=== PATIENT | female | born 1945 | race Caucasian/White ===

== ENCOUNTER 2017-12-14 08:27 | Inpatient (IN) | payer OTHER, BC ==
[~2017-12-14] VITALS: Ht 160 cm; Wt 87.5 kg
[2017-12-14] MEDS ORDERED: METFORMIN HCL1000 MG PO (09:01)
[2017-12-14] MEDS ORDERED: LISINOPRIL-HCT1 EACH PO (09:02)
[2017-12-14] MEDS ORDERED: ROSUVASTATIN CA10 MG PO (09:02)
[2017-12-14] MEDS ORDERED: CYCLOBENZAPRINE10 MG PO (09:03)
[2017-12-14 09:36] LABS: BASOPHIL (%) 0.5 % (0-1); BASOPHIL COUNT 0.1 K/uL (0-0.1); EOSINOPHIL (%) 0.5 % (0-5); EOSINOPHIL COUNT 0.1 K/uL (0-0.3); HEMATOCRIT 39.2 % (36.0-46.0); HEMOGLOBIN 12.9 G/DL (11.9-15.5); IMMATURE GRANULOCYTE (%) 0.6 % (0.0-0.7); LYMPHOCYTE (%) 13.2 % (15-42); LYMPHOCYTE COUNT 2.3 K/uL (1.0-2.8); MCH 30.3 PG (29.0-34.0); MCHC 32.9 G/DL (30.0-36.0); MONOCYTE (%) 6.8 % (3-12); MONOCYTE COUNT 1.2 K/uL (0-0.8); NEUTROPHIL (%) 78.4 % (45-76); NEUTROPHIL COUNT 13.9 K/uL (1.8-6.4); PLATELET COUNT 254 K/uL (156-360); RBC DIS.WIDTH-CV 14.2 % (11.8-14.6); RED BLOOD COUNT 4.26 M/uL (3.80-5.20); WHITE BLOOD COUNT 17.7 K/uL (4.1-10.2)
[2017-12-14 09:44] LABS: PTT 24.6 SEC (25-37)
[2017-12-14 09:49] LABS: CHLORIDE 102 mEq/L (99-109); SODIUM 135 mEq/L (136-147)
[2017-12-14 09:51] LABS: GLUCOSE 194 mg/dL (70-99)
[2017-12-14 09:55] LABS: GFR ESTIMATE (CALCULATED) 58 mL/min/
[2017-12-14 09:56] LABS: UREA NITROGEN (BUN) 19 mg/dL (9-23)
[2017-12-14 10:02] LABS: TROP-I INTERPRETATION NEGATIVE; TROPONIN-I 0.19 ng/mL (0.0-0.30)
[2017-12-14] MEDS ORDERED: TYLENOL EXTRA500 MG PO (12:09)
[2017-12-14 16:45] VITALS: BP 117/67; BP 127/64
[2017-12-14 17:00] VITALS: BP 117/67
[2017-12-14 18:00] VITALS: BP 133/76
[2017-12-14 20:00] VITALS: BP 132/71
[2017-12-14 22:00] VITALS: BP 0/0; BP 100/62
[2017-12-15] VITALS (8 sets, daily range): BP systolic 98–150; BP diastolic 58–74
[2017-12-15 06:01] LABS: HEMATOCRIT 34.5 % (36.0-46.0); HEMOGLOBIN 11.6 G/DL (11.9-15.5); MCH 30.1 PG (29.0-34.0); MCHC 33.6 G/DL (30.0-36.0); MCV 89.6 FL (83-99); PLATELET COUNT 233 K/uL (156-360); RBC DIS.WIDTH-SD 45.5 % (39-53); RED BLOOD COUNT 3.85 M/uL (3.80-5.20); WHITE BLOOD COUNT 15.1 K/uL (4.1-10.2)
[2017-12-15 06:29] LABS: ALBUMIN 3.9 G/DL (3.2-4.8); ALKALINE PHOSPHATASE 41 IU/L (3-129); ALT (GPT) 60 IU/L (3-49); AST (GOT) 23 IU/L (2-34); CHLORIDE 103 MEQ/L (99-109); CREATININE 0.9 MG/DL (0.6-1.3); GFR ESTIMATE (CALCULATED) > 59 mL/min/; GLUCOSE 225 mg/dL (70-99); POTASSIUM 4.7 MEQ/L (3.7-5.4); SODIUM 136 MEQ/L (136-147); TOTAL BILIRUBIN 0.3 MG/DL (0.0-1.0); TOTAL PROTEIN 6.8 G/DL (6.4-8.3); UREA NITROGEN (BUN) 20 mg/dL (9-23)
[2017-12-16 02:42] VITALS: BP 102/63
[2017-12-16 05:34] LABS: BASOPHIL (%) 0.1 % (0-1); EOSINOPHIL (%) 0 % (0-5); HEMATOCRIT 33.5 % (36.0-46.0); IMMATURE GRANULOCYTE (%) 0.7 % (0.0-0.7); LYMPHOCYTE (%) 7.5 % (15-42); LYMPHOCYTE COUNT 1.2 K/uL (1.0-2.8); MCH 29.4 PG (29.0-34.0); MCHC 32.8 G/DL (30.0-36.0); MCV 89.6 FL (83-99); MONOCYTE (%) 6.6 % (3-12); MONOCYTE COUNT 1.1 K/uL (0-0.8); NEUTROPHIL (%) 85.1 % (45-76); NEUTROPHIL COUNT 13.8 K/uL (1.8-6.4); PLATELET COUNT 246 K/uL (156-360); RBC DIS.WIDTH-CV 13.9 % (11.8-14.6); RBC DIS.WIDTH-SD 45.4 % (39-53); RED BLOOD COUNT 3.74 M/uL (3.80-5.20); WHITE BLOOD COUNT 16.2 K/uL (4.1-10.2)
[2017-12-16 05:57] LABS: CHLORIDE 100 MEQ/L (99-109); CREATININE 0.8 MG/DL (0.6-1.3); GFR ESTIMATE (CALCULATED) > 59 mL/min/; GLUCOSE 244 mg/dL (70-99); POTASSIUM 4.6 MEQ/L (3.7-5.4); SODIUM 134 MEQ/L (136-147); UREA NITROGEN (BUN) 22 mg/dL (9-23)
[2017-12-16 07:56] VITALS: BP 125/65
[2017-12-16 11:58] VITALS: BP 132/69
[2017-12-16 16:18] VITALS: BP 132/56
[2017-12-16 20:13] VITALS: BP 134/72
[2017-12-17 00:28] VITALS: BP 117/78
[2017-12-17 03:47] VITALS: BP 99/57
[2017-12-17 05:42] LABS: HEMATOCRIT 32.5 % (36.0-46.0); HEMOGLOBIN 10.8 G/DL (11.9-15.5); MCH 29.8 PG (29.0-34.0); MCHC 33.2 G/DL (30.0-36.0); MCV 89.8 FL (83-99); PLATELET COUNT 287 K/uL (156-360); RBC DIS.WIDTH-CV 13.9 % (11.8-14.6); RBC DIS.WIDTH-SD 45.8 % (39-53); RED BLOOD COUNT 3.62 M/uL (3.80-5.20); WHITE BLOOD COUNT 16.4 K/uL (4.1-10.2)
[2017-12-17 07:27] VITALS: BP 106/68
[2017-12-17] MEDS ORDERED: SPIRIVA RESPIMAT4 GM IH (09:22)
[2017-12-17] MEDS ORDERED: DULERA 100 MCG/13 GM IH (09:22)
[2017-12-17] MEDS ORDERED: XARELTO20 MG PO (09:26)
[2017-12-17] MEDS ORDERED: CEFTIN500 MG PO (09:26)
[2017-12-17] MEDS ORDERED: XARELTO15 MG PO (09:26)
[2017-12-17] MEDS ORDERED: PREDNISONE10 MG PO (09:26)
[2017-12-17] MEDS ORDERED: PROAIR HFA8.5 GM IH (09:27)
[2017-12-17 11:24] VITALS: BP 107/76
== END 2017-12-17 14:13 | disposition home or self-care (01) | DRG 190 ==
LOC: EME 08:27 → 4WEST 15:33 → 4EAST 15:33 → EDOF 15:33 → ENRESERV 15:34 → EDOF 15:44 → ENRESERV 15:46 → 4WEST 16:22 → ENRESERV 12-15 11:43 → 4EAST 12-15 20:47 → ENPENDDIS 12-17 → 4EAST 12-17 14:13
PROVIDERS: Emergency Medicine; Hospitalist; Student in an Organized Health Care Education/Training Program
DX: J44.0 Chronic obstructive pulmonary disease with (acute) lower respiratory infection (principal); I26.99 Other pulmonary embolism without acute cor pulmonale; R09.02 Hypoxemia; E11.9 Type 2 diabetes mellitus without complications; I07.1 Rheumatic tricuspid insufficiency; J44.1 Chronic obstructive pulmonary disease with (acute) exacerbation; E78.5 Hyperlipidemia, unspecified; F17.200 Nicotine dependence, unspecified, uncomplicated; I10 Essential (primary) hypertension; Z79.84 Long term (current) use of oral hypoglycemic drugs; J20.9 Acute bronchitis, unspecified; R94.31 Abnormal electrocardiogram [ECG] [EKG]; Z71.6 Tobacco abuse counseling; I51.9 Heart disease, unspecified; R63.4 Abnormal weight loss; Z68.34 Body mass index [BMI] 34.0-34.9, adult; Z66 Do not resuscitate; J18.9 Pneumonia, unspecified organism; Z90.49 Acquired absence of other specified parts of digestive tract
CPT/HCPCS: 70450; 71045; 71275; 80048; 80053; 83880; 84484; 85025; 85027; 85610; 85730; 87449; 87641; 93005; 93306; 93970; 94010; 94640; 94640 76; 94760; 94799; 97530 GO; 99202; 99281; 99285; J0696; J2920; J2930; J7512; J7644